=== PATIENT | male | born 1950 | race Caucasian/White ===

== ENCOUNTER 2022-01-09 18:51 | Observation (INO) | payer MEDICARE ==
[~2022-01-09] VITALS: Ht 175.3 cm; Wt 82.7 kg
[2022-01-09] VITALS (7 sets, daily range): BP systolic 111–130; BP diastolic 62–77
--- NOTE | 2022-01-09 16:36 | NUR ---
PATIENT ARRIVED ON FLOOR VIA STRETCHER ACCOMPANIED BY ED NURSE
--- NOTE | 2022-01-09 18:55 | NUR ---
TO ROOM VIA WHEELCHAIR, ACCOMPANIED BY
[2022-01-09 19:31] LABS: HEMATOCRIT 41.2 % (39.0-50.0); HEMOGLOBIN 13.4 g/dl (14.0-18.0); IMMATURE GRANULOCYTES 0.3 % (0.0-5.0); MEAN CELL VOLUME 93.4 fL CALC (80.0-100.0); MEAN CORPUSCULAR HGB 30.4 pG CALC (26.0-32.0); MEAN CORPUSCULAR HGB CONC 32.5 g/dL CAL (32.0-36.0); NEUT# 3.82 thou/uL (1.82-7.42); RED BLOOD COUNT 4.41 mill/uL (4.70-6.10); RED CELL DISTRI WIDTH 13.3 % (11.5-15.5)
[2022-01-09 19:37] LABS: ALBUMIN 3.7 g/dL (3.2-5.0); ALKALINE PHOSPHATASE 93 u/l (38-126); AMYLASE 135 u/l (30-110); ANION GAP 14 (6-22 (CALC)); BILIRUBIN, TOTAL 0.4 mg/dL (0.0-1.4); BUN 23 mg/dL (8-23); BUN/CREATININE RATIO 21 (12-20 (CALC)); CARBON DIOXIDE 24 mmol/l (22-30); CHLORIDE 107 mmol/l (95-108); CREATININE 1.1 mg/dL (0.7-1.3); ETHYL ALCOHOL 0 mg/dl (0-30); GFR > 60 ML/MIN (>=60 (CALC)); GFR FOR AFR.AMER. > 60 ML/MIN (>=60 (CALC)); LIPASE 177 u/l (23-300); POTASSIUM 4.1 mmol/l (3.5-5.1); SGOT/AST 32 u/l (19-48); SODIUM 140 mmol/l (137-146); TOTAL PROTEIN 7.3 g/dL (6.3-8.2)
[2022-01-09 19:54] LABS: ACT PARTIAL THROMBO TIME 25.6 SECONDS (20.0-32.5); PROTHROMBIN TIME 10.1 SECONDS (9.0-12.5)
[2022-01-09 19:57] LABS: URINE BILIRUBIN - DIPSTICK NEGATIVE (NEGATIVE); URINE BLOOD DIPSTICK NEGATIVE (NEGATIVE); URINE COLOR YELLOW; URINE GLUCOSE - DIPSTICK NEGATIVE (NEGATIVE); URINE KETONE NEGATIVE (NEGATIVE); URINE LEUK ESTERASE NEGATIVE (NEGATIVE); URINE PROTEIN - DIPSTICK NEGATIVE (NEG-TRACE); URINE SPECIFIC GRAVITY >=1.030; URINE UROBILINOGEN - DIPSTICK 0.2 E.U./dL (0.2)
[2022-01-09 19:59] LABS: URINE NITRITE - DIPSTICK NEGATIVE (Negative)
--- NOTE | 2022-01-09 20:10 | NUR ---
REASSESSMENT COMPLETED, PT RESTING NO C/O
--- NOTE | 2022-01-09 21:15 | NUR ---
PT RESTING DENIES COMPLAINTS AT THIS TIME.
--- NOTE | 2022-01-09 22:52 | NUR ---
REPORT RECIEVED FROM ER
--- NOTE | 2022-01-09 22:55 | NUR ---
REPORT TO ARIN OLVERA. MED SURG. PT RESTING. NO C/O.
--- NOTE | 2022-01-09 23:00 | NUR ---
PT RESTING. NO C/O. AWAITING DISPO. VSS.
--- NOTE | 2022-01-09 23:35 | NUR ---
PT TO FLOOR VIA W/C WITH POCKET MONITOR. NO C/O. VALUABLES CHECK LIST DONE. RESP RATE WNL AT 17. APPARENTLY NEW MONITORING SYSTEM HAS A CLICHE AND IS RECORDING RR THE SAME THE HR.
[2022-01-10] VITALS: BP 140/73
[2022-01-10 01:16] VITALS: BP 129/63
--- NOTE | 2022-01-10 04:15 | NUR ---
PATIENT SLEEPING SOUNDLY, AWOKEN BY LAB
[2022-01-10 05:14] VITALS: BP 123/58
[2022-01-10 05:57] LABS: CHOLESTEROL HDL RATIO 2.8 (<4.4 (CALC))
--- NOTE | 2022-01-10 08:00 | NUR ---
PT AWAKE UPON ENTERING ROOM. ASSESSMENT AND VITALS ALLOWED AT THIS TIME. IV 20LAC NS INFUSING @100 ML/HR. TELE MONITOR IN PLACE. CONTINOUS MONITORING PER ED. PT STATES NO PAIN. FALL/SAFTEY PRECAUTIONS IN PLACE. CALL LIGHT WITHINREACH.
[2022-01-10] MEDS ORDERED: MULTIVITAMI9 PO (08:45)
[2022-01-10] MEDS ORDERED: ZINC30 M2 PO (08:46)
[2022-01-10] MEDS ORDERED: VITAMIN D1000 UNIT PO (08:46)
[2022-01-10] MEDS ORDERED: ASPIRIN ADULT L81 M2 PO (08:48)
[2022-01-10] MEDS ORDERED: OMEPRAZOLE DR40 MG PO (08:49)
[2022-01-10] MEDS ORDERED: B-121000 MC4 PO (09:28)
[2022-01-10 10:37] VITALS: BP 148/73
--- NOTE | 2022-01-10 11:27 | NUR ---
Discharge instructions given. Patient verbalizes understanding of same. Discharged in stable condition via Ambulatory to with staff. All belongings sent with pt. IV 20 LAC REMOVED CATHETER FULLY INTACT. TELE MONITOR REMOVED. INSTRUCTIONS TAKEN, AMBULATED BY FOOT PER PREFERENCE. ACCOMPANIED BY FAMILY RESOURCE MANAGEMENT PROFESSOR ARIN AGUIAR
== END 2022-01-10 11:27 | disposition home or self-care (01) ==
LOC: ED 18:51 → ED-I 21:15 → ED 21:29 → MS2 21:30
PROVIDERS: ADMIT Internal Medicine; ATTEND Internal Medicine
DX: R07.9 Chest pain, unspecified (principal); R55 Syncope and collapse; R00.1 Bradycardia, unspecified; I44.7 Left bundle-branch block, unspecified; Z20.822 Contact with and (suspected) exposure to COVID-19
CPT/HCPCS: Q9967

== ENCOUNTER → 2022-11-30 | Emergency (ER) | payer MEDICARE ==
[2022-11-30] VITALS (13 sets, daily range): BP systolic 124–171; BP diastolic 55–102
[~2022-11-30] VITALS: Ht 175.3 cm; Wt 85.0 kg
[~2022-11-30] MED LIST: ASPIRIN ADULT L81 M2 PO; B-121000 MC4 PO; MULTIVITAMI9 PO; OMEPRAZOLE DR40 MG PO; VITAMIN D1000 UNIT PO; ZINC30 M2 PO
[2022-11-30 15:54] LABS: BASO% 0.3 % (0-3); HEMATOCRIT 47.1 % (39.0-50.0); IMMATURE GRANULOCYTES 0.2 % (0.0-5.0); LYMPH% 10.3 % (15-41); MEAN CELL VOLUME 92.9 fL CALC (80.0-100.0); MEAN CORPUSCULAR HGB 31.6 pG CALC (26.0-32.0); MONO% 5.1 % (2-13); NEUT# 10.45 thou/uL (1.82-7.42); NEUT% 83.1 % (42-76); RED BLOOD COUNT 5.07 mill/uL (4.70-6.10); RED CELL DISTRI WIDTH 12.9 % (11.5-15.5)
[2022-11-30 16:08] LABS: ALKALINE PHOSPHATASE 110 u/l (38-126); ANION GAP 12 (6-22 (CALC)); BUN 22 mg/dL (8-23); BUN/CREATININE RATIO 21 (12-20 (CALC)); CARBON DIOXIDE 27 mmol/l (22-30); CHLORIDE 108 mmol/l (95-108); CREATININE 1.1 mg/dL (0.7-1.3); GFR FOR AFR.AMER. > 60 ML/MIN (>=60 (CALC)); GFR OTHER RACES > 60 ML/MIN (>=60 (CALC)); POTASSIUM 4.3 mmol/l (3.5-5.1); SGOT/AST 37 u/l (19-48); SODIUM 142 mmol/l (137-146); TOTAL PROTEIN 8.7 g/dL (6.3-8.2)
[2022-11-30 16:09] LABS: ALBUMIN 4.9 g/dL (3.2-5.0); BILIRUBIN, TOTAL 0.6 mg/dL (0.0-1.4)
[2022-11-30 18:34] LABS: URINE BILIRUBIN - DIPSTICK NEGATIVE (NEGATIVE); URINE BLOOD DIPSTICK NEGATIVE (NEGATIVE); URINE COLOR YELLOW; URINE GLUCOSE - DIPSTICK NEGATIVE (NEGATIVE); URINE KETONE NEGATIVE (NEGATIVE); URINE LEUK ESTERASE NEGATIVE (NEGATIVE); URINE NITRITE - DIPSTICK NEGATIVE (Negative); URINE PH 5.5 (4.5-8.0); URINE PROTEIN - DIPSTICK NEGATIVE (NEG-TRACE); URINE UROBILINOGEN - DIPSTICK 0.2 E.U./dL (0.2)
== END | disposition left against medical advice (07) ==
LOC: ED 14:39 → ED-I 18:45 → ED 19:08
PROVIDERS: Family Medicine
DX: R55 Syncope and collapse (principal); S00.83XA Contusion of other part of head, initial encounter; S80.812A Abrasion, left lower leg, initial encounter; I44.7 Left bundle-branch block, unspecified; W19.XXXA Unspecified fall, initial encounter; Y92.008 Other place in unspecified non-institutional (private) residence as the place of occurrence of the external cause; Z53.29 Procedure and treatment not carried out because of patient's decision for other reasons